=== PATIENT | female | born 1940 | race Caucasian/White ===

== ENCOUNTER 2020-01-28 07:35 | Outpatient (CLI) | payer MEDICARE, OTHER ==
[2020-01-28 14:48] LABS: Anion Gap 14 mmol/L (10-20); BUN (Urea Nitrogen) 24 mg/dL (9.8-20.1); Calc. Creatinine Clearance 0 mL/min (70-130); Calcium 9.5 mg/dL (7.8-10.44); Carbon Dioxide 27 mmol/L (23-31); Chloride 103 mmol/L (98-107); Estimated GFR-MDRD 66; Glucose 139 mg/dL (83-110); Potassium 4.1 mmol/L (3.5-5.1); Sodium 140 mmol/L (136-145)
--- NOTE | 2020-01-28 17:06 | EKG ---
Test Reason : Blood Pressure : / mmHG Vent. Rate : 071 BPM Atrial Rate : 071 BPM P-R Int : 144 ms QRS Dur : 108 ms QT Int : 434 ms P-R-T Axes : 086 018 022 degrees QTc Int : 471 ms Normal sinus rhythm Nonspecific ST and T wave abnormality Prolonged QT Abnormal ECG No previous ECGs available Confirmed by DR. Johnathan BROWN ([id number]) on 01/28/2020 5:06:02 PM Referred By: MILAD Confirmed By:DR. Johnathan BROWN
[2020-01-29 10:03] LABS: SARS-CoV-2 MS2 Positive; SARS-CoV-2 N Gene Negative; SARS-CoV-2 S Gene Negative; SARS-CoV-2 orf1ab Negative
== END 2020-01-28 07:36 | disposition home or self-care (01) ==
LOC: LABBT 07:35
PROVIDERS: ATTEND Otolaryngology Plastic Surgery within the Head & Neck
DX: Z01.818 Encounter for other preprocedural examination (principal); Z11.59 Encounter for screening for other viral diseases; J38.00 Paralysis of vocal cords and larynx, unspecified; M06.9 Rheumatoid arthritis, unspecified; R49.0 Dysphonia
CPT/HCPCS: 80048; 85014; 85018; 93005; U0002; 87635; 93010

== ENCOUNTER 2020-01-30 08:20 | Day surgery (SDC) | payer MEDICARE ==
[2020-01-28 13:22] VITALS: BMI 22.0
[2020-01-30] MEDS ORDERED: PROPOFOL 200 MG/20 ML VIAL ONE (08:21)
[2020-01-30] MEDS ORDERED: Dexamethasone 20 MG/5 ML VIAL ONE (08:21)
[2020-01-30] MEDS ORDERED: Succinylcholine Chloride 20 MG/ML 10 ml SYRINGE FS ONE (08:21)
[2020-01-30] MEDS ORDERED: Ondansetron PF 4 MG/2 ML Vial ONE (08:21)
[2020-01-30] MEDS ORDERED: Lidocaine 1% PF 5 ML VIAL ONE (08:21)
[2020-01-30] MEDS ORDERED: EPINEPHrine 1 MG/ML AMP ONE (10:52)
[2020-01-30] MEDS ORDERED: Fentanyl 100 MCG/2 ML VIAL ONE (10:58)
[2020-01-30] MEDS ORDERED: Midazolam HCl 2 mg/2 ml Vial ONE (10:58)
[2020-01-30] MEDS ORDERED: Hydrocodone-Acetamin 15 ML UDCUP ONE (12:48)
--- NOTE | 2020-01-30 13:29 | OP ---
DATE OF PROCEDURE: 01/30/2020 PREOPERATIVE DIAGNOSES: 1. Left vocal cord paralysis. 2. Dysphonia. POSTOPERATIVE DIAGNOSES: 1. Left vocal cord paralysis. 2. Dysphonia. PROCEDURES PERFORMED: 1. Left true vocal cord medialization laryngoplasty. 2. Microsuspension direct laryngoscopy. ESTIMATED BLOOD LOSS: 0 mL. COMPLICATIONS: None. ANESTHESIA: GETA via Adrian Jet ventilation. DESCRIPTION OF PROCEDURE: The patient was taken to the operating room and placed supine on the table. General endotracheal anesthesia was obtained by the anesthesia staff, jet ventilation was assumed and oxygen saturations were easily maintained. A tooth guard was placed in the upper teeth and a Dedo laryngoscope was then placed into the oral cavity and was retracted. The oral cavity and oropharyngeal mucosa were inspected, were noted to be within normal limits. Also, there was no lesions of the hypopharyngeal or pharyngeal mucosa. The pyriform sinuses, vallecula, epiglottis, true vocal cords, and subglottic area were visualized using the operating microscope and were noted to be within normal limits. Following this, the patient was placed in suspension, allowing adequate visualization of the true vocal cords bilaterally. The Prolaryn needle was injected just lateral to the thyroarytenoid muscle and vocalis muscle and 0.3 mL of medialization material was inserted medializing the vocal cord on this left side. There was no bleeding or swelling. A small amount of on a pledget was allowed to soak for 2 minutes on this area and then was removed. Airway was patent at the end of the case. The patient tolerated the procedure well. Job ID: [id number]
== END 2020-01-30 13:15 | disposition home or self-care (01) ==
LOC: SDC 08:20
PROVIDERS: ATTEND Otolaryngology Plastic Surgery within the Head & Neck
PROC: 0CJS8ZZ Inspection of Larynx, Via Natural or Artificial Opening Endoscopic (ICD-10-PCS; principal; 2020-01-30)
PROC: 3E0F7GC Introduction of Other Therapeutic Substance into Respiratory Tract, Via Natural or Artificial Opening (ICD-10-PCS; 2020-01-30)
DX: J38.00 Paralysis of vocal cords and larynx, unspecified (principal); M06.9 Rheumatoid arthritis, unspecified; Z79.899 Other long term (current) drug therapy; Z87.891 Personal history of nicotine dependence
CPT/HCPCS: 36416; J0171; J1100; J2001; J2250; J2405; J2704; J3010

== ENCOUNTER 2020-03-03 07:39 | Outpatient (CLI) | payer MEDICARE, OTHER ==
[2020-03-03 10:48] LABS: Hemoglobin 11.1 g/dL (12.0-16.0)
[2020-03-03 11:14] LABS: Anion Gap 12 mmol/L (10-20); BUN (Urea Nitrogen) 20 mg/dL (9.8-20.1); Calc. Creatinine Clearance 0 mL/min (70-130); Calcium 8.9 mg/dL (7.8-10.44); Carbon Dioxide 28 mmol/L (23-31); Chloride 105 mmol/L (98-107); Estimated GFR-MDRD 65; Glucose 108 mg/dL (83-110); Potassium 3.7 mmol/L (3.5-5.1); Sodium 141 mmol/L (136-145)
[2020-03-03 18:45] LABS: SARS-CoV-2 MS2 Positive; SARS-CoV-2 N Gene Negative; SARS-CoV-2 S Gene Negative; SARS-CoV-2 orf1ab Negative
== END 2020-03-03 07:40 | disposition home or self-care (01) ==
LOC: LABBT 07:39
PROVIDERS: ATTEND Otolaryngology Plastic Surgery within the Head & Neck
DX: Z01.818 Encounter for other preprocedural examination (principal); Z11.59 Encounter for screening for other viral diseases; J38.00 Paralysis of vocal cords and larynx, unspecified; R49.0 Dysphonia; M06.9 Rheumatoid arthritis, unspecified; E04.1 Nontoxic single thyroid nodule
CPT/HCPCS: 80048; 85014; 85018; 93005; U0003; 87635; 93010

== ENCOUNTER 2020-03-05 07:16 | Day surgery (SDC) | payer MEDICARE ==
[2020-03-03 10:06] VITALS: BMI 22.0
[2020-03-05] MEDS ORDERED: Propofol 500 MG/50 ML VIAL ONE (07:24)
[2020-03-05] MEDS ORDERED: EPINEPHrine 1 MG/ML AMP ONE (08:53)
[2020-03-05] MEDS ORDERED: Fentanyl 100 MCG/2 ML VIAL ONE (09:04)
[2020-03-05] MEDS ORDERED: Lidocaine 1% PF 5 ML VIAL ONE (11:28)
[2020-03-05] MEDS ORDERED: Dexamethasone 20 MG/5 ML VIAL ONE (11:28)
--- NOTE | 2020-03-06 08:05 | OP ---
DATE OF PROCEDURE: 03/05/2020 PREOPERATIVE DIAGNOSES: 1. Left true vocal cord paralysis. 2. Dysphonia. POSTOPERATIVE DIAGNOSES: 1. Left true vocal cord paralysis. 2. Dysphonia. PROCEDURES PERFORMED: Left true vocal cord medialization laryngoplasty with Prolaryn injection. ESTIMATED BLOOD LOSS: 0 mL. COMPLICATIONS: None. ANESTHESIA: GETA. DESCRIPTION OF PROCEDURE: The patient was taken to the operating room, placed supine on the table. Jet ventilation was obtained with Adrian tube. Following this, the patient was placed in suspension using the Dedo laryngoscope. The operating microscope was brought into the field with the 400 mm lens and 0.35 mL of Prolaryn injection was placed just lateral to the thyro-arytenoid muscle medializing the vocal cord. The patient tolerated the procedure well. Job ID: [id number]
== END 2020-03-05 12:00 | disposition home or self-care (01) ==
LOC: SDC 07:16
PROVIDERS: ATTEND Otolaryngology Plastic Surgery within the Head & Neck
PROC: 3E0F8GC Introduction of Other Therapeutic Substance into Respiratory Tract, Via Natural or Artificial Opening Endoscopic (ICD-10-PCS; principal; 2020-03-05)
DX: J38.01 Paralysis of vocal cords and larynx, unilateral (principal); M06.9 Rheumatoid arthritis, unspecified; E04.1 Nontoxic single thyroid nodule; M81.0 Age-related osteoporosis without current pathological fracture; Z87.891 Personal history of nicotine dependence; Z79.52 Long term (current) use of systemic steroids; Z79.899 Other long term (current) drug therapy
CPT/HCPCS: J0171; J1100; J2001; J2704; J3010